=== PATIENT | female | born 1990 | race Caucasian/White ===

== ENCOUNTER 2016-11-01 11:34 | Emergency (ER) | payer OTHER ==
[~2016-11-01] VITALS: Ht 175.3 cm; Wt 59.1 kg
[~2016-11-01 11:34] MED LIST: ATIVAN 1MG T1 MG/TAB PO; ATIVAN2 MG PO; K-DUR20 MEQ PO; KLONOPIN2 MG PO; ZOFRAN 4MG T4 MG/TAB PO; ZOLOFT 100MG100 MG PO
[2016-11-01 11:37] VITALS: TEMP 98.6
[2016-11-01 11:50] VITALS: BP 108/67
[2016-11-01] MEDS ORDERED: FLEXERIL 1010 MG/TAB PO (13:26)
[2016-11-01] MEDS ORDERED: NORCO 325 MG-51 TAB PO (13:26)
[2016-11-01 13:42] VITALS: PULSE 63
== END 2016-11-01 13:43 | disposition home or self-care (01) ==
LOC: COL.ER 11:34
DX: R07.89 Other chest pain (principal); F41.0 Panic disorder [episodic paroxysmal anxiety]
CPT/HCPCS: J2270; J2550

== ENCOUNTER 2018-10-31 01:29 | Emergency (ER) | payer OTHER ==
[~2018-10-31] VITALS: Ht 175.3 cm; Wt 59.1 kg
[~2018-10-31 01:29] MED LIST changes: +FLEXERIL 1010 MG/TAB PO; +NORCO 325 MG-51 TAB PO
[2018-10-31 01:34] VITALS: TEMP 98.6
[2018-10-31 02:11] LABS: BASO # 0.1 (0.0-0.2); BASO % 0.5 % (0.0-2.0); EOS # 0.1 (0.0-0.7); EOS % 0.8 % (0-4.0); GRAN # 8.6 (1.4-6.5); GRAN % 70.8 % (42.2-75.2); HEMATOCRIT 40.7 % (37.0-47.0); LYMPH % 16.2 % (20.0-51.0); MEAN CELL VOLUME 94 fl (80.0-100.0); MEAN CORPUSCULAR HEMOGLOBIN 33 pg (27.0-31.0); MEAN CORPUSCULAR HGB CONC 34 g/dl (33.0-37.0); MEAN PLATELET VOLUME 9.7 fl (7.4-10.4); MONO # 1.4 (0.1-0.6); MONO % 11.3 % (1.7-9.3); PLATELET COUNT 288 K/mm3 (130-400); RED BLOOD COUNT 4.31 M/mm3 (4.10-5.30); REDCELL DISTRIBUTION WIDTH-CV 12.7 % (11.5-14.5)
[2018-10-31] MEDS ORDERED: ATIVAN 1MG T1 MG/TAB PO (02:19)
[2018-10-31] MEDS ORDERED: BENADRYL50 MG (02:21)
[2018-10-31] MEDS ORDERED: TYLENOL PM EXTR1 TA1 (02:22)
[2018-10-31 02:41] LABS: ALBUMIN 4.4 gm/dL (3.5-5.0); BILIRUBIN,TOTAL 0.1 mg/dL (0.0-1.0); CREATININE, serum 0.59 (0.52-1.25); POTASSIUM 3.9 mmol/L (3.4-5.0); TOTAL PROTEIN 7.8 gm/dL (6.4-8.2)
[2018-10-31 03:14] LABS: COLLECTION METHOD CLEAN CATCH
[2018-10-31 03:38] LABS: AMORPHOUS CRYSTAL Present /uL; PH 8 (5-8); SQUAMOUS EPITHELIAL 0-2 /hpf; URINE APPEARANCE Hazy; URINE BACTERIA Rare /hpf; URINE BILIRUBIN Negative (NEGATIVE); URINE BLOOD Negative (NEGATIVE); URINE COLOR Yellow; URINE GLUCOSE Negative (NEGATIVE); URINE KETONE Negative (NEGATIVE); URINE LEUKOCYTE ESTERASE Negative (NEGATIVE); URINE NITRATE Negative (NEGATIVE); URINE PROTEIN(semi-quant) Negative (NEGATIVE); URINE RBC 0-2 /hpf; URINE UROBILINOGEN Negative (NEGATIVE)
[2018-10-31 03:38] LABS: MAGNESIUM 1.9 mg/dL (1.6-2.3); PHOSPHOROUS 3.4 mg/dL (2.5-4.5)
[2018-10-31] MEDS ORDERED: MACROBID 1100 MG/CAP PO (04:09)
[2018-10-31 09:30] VITALS: BP 105/65; PULSE 70
== END 2018-10-31 09:35 | disposition home or self-care (01) ==
LOC: COL.ER 01:29
PROVIDERS: Emergency Medicine
DX: O99.341 Other mental disorders complicating pregnancy, first trimester (principal); O26.891 Other specified pregnancy related conditions, first trimester; F41.9 Anxiety disorder, unspecified; R45.851 Suicidal ideations; Z3A.01 Less than 8 weeks gestation of pregnancy
CPT/HCPCS: J1200; J7030

== ENCOUNTER 2019-05-31 23:03 | Inpatient (IN) | payer OTHER ==
[~2019-05-31] VITALS: Ht 177.8 cm; Wt 82.3 kg
[~2019-05-31 23:03] MED LIST changes: +BENADRYL50 MG; +MACROBID 1100 MG/CAP PO; +TYLENOL PM EXTR1 TA1
--- NOTE | 2019-05-31 23:15 | NUR ---
Ambulatory to unit for assessment of contractions. Oriented to room, monitor plan of care.
[2019-05-31 23:25] VITALS: BP 125/68; PULSE 82
--- NOTE | 2019-05-31 23:25 | NUR ---
BROCK as noted. As nurse starts to leave room, pt asks for door to be left open and states "I should probably tell you, I'm probably going to have a panic attack while I'm here" Pt reports the panic attacks are worse at night and "when I'm alone" When asked what we could do to help that from happening, she replied "just check on me alot and leave the door open" Pt reports "I take ATivan when they get get bad." Informed pt that we would flike to avoid ativan as much as possible at this point. Verbalizes understanding. Encouraged pt to call a friend to come and keep her company.
[2019-05-31 23:36] VITALS: BP 125/68; PULSE 82; TEMP 98.1
--- NOTE | 2019-05-31 23:45 | NUR ---
Pt reports "the contractions are terrible. I think I'm going to throw up." Offered SVE pt refuses, cold wash cloth provided, and basin for potential emesis.
[2019-06-01] VITALS (41 sets, daily range): BP systolic 98–146; BP diastolic 42–73; PULSE 66–93; TEMP 97.4–99.3
--- NOTE | 2019-06-01 00:30 | NUR ---
SVE as noted. Explained plan of care and admission to pt. Pt requests epidural.
--- NOTE | 2019-06-01 01:20 | NUR ---
0120 - IV started in left forearm. Lactated Ringers infusing to gravity. Consents reviewed with patient, verbalized understanding. US and toco applied. Pt requesting epidural, [facility] notified, will come to hospital. 0129 - Variable deceleration down to 90 bpm noted with contraction. Pt turned to left lateral. Fluid bolus started. 0131 - FHR remains in 90s, repositioned into hands and knees. Additional nursing to bedside. 0132 - FHR remains in 90s, O2 applied. Pt down to left lateral position. SVE 4/100/-2. 0135 - FHR remains in 90s, repositioned to right lateral. Dr. Gilman notified, will come to hospital. 0137 - FHR remains in 90s, repositioned to left lateral. 0139 - 0.2 mg terbutaline given subcutaneously in right arm, see MAR. 0140 - FHR improved to 115 bpm with moderate variability. Pt updated on plan of care.
[2019-06-01 01:45] LABS: BASO % 0.3 % (0.0-2.0); EOS # 0.1 (0.0-0.7); EOS % 0.5 % (0-4.0); GRAN # 11.3 (1.4-6.5); GRAN % 76.2 % (42.2-75.2); HEMATOCRIT 38.3 % (37.0-47.0); HEMOGLOBIN 12.7 g/dl (12.5-16.0); LYMPH # 1.9 (1.2-3.4); LYMPH % 12.9 % (20.0-51.0); MEAN CELL VOLUME 98 fl (80.0-100.0); MEAN CORPUSCULAR HEMOGLOBIN 32 pg (27.0-31.0); MEAN CORPUSCULAR HGB CONC 33 g/dl (33.0-37.0); MEAN PLATELET VOLUME 10.6 fl (7.4-10.4); MONO # 1.4 (0.1-0.6); MONO % 9.2 % (1.7-9.3); PLATELET COUNT 297 K/mm3 (130-400); RED BLOOD COUNT 3.93 M/mm3 (4.10-5.30); REDCELL DISTRIBUTION WIDTH-CV 13.2 % (11.5-14.5)
--- NOTE | 2019-06-01 02:16 | NUR ---
0200 - SWATI Welch at bedside for epidural placement. Pt repositioned to sitting on edge of bed. Epidural risks, benefits, and procedure reviewed with patient, pt verbalized understanding. 0206 - First dose of pen G given, see MAR. 0216 - Test dose by SWATI Welch. Pt denies any adverse reactions. 0220 - Pt positioned to wedge left. Educated patient on safety precautions, call light within reach, bed in low and locked position. See anesthesia record.
--- NOTE | 2019-06-01 03:15 | NUR ---
[place] placed to dependent drainage. Clear, yellow urine with [place] start. Secured to leg with stat lock. SVE 4/-2.
--- NOTE | 2019-06-01 06:30 | NUR ---
Assumed care of patient. Rests in bed, alert. Family at bedside. States feeling tired. Encouraged patient to sleep. 0640 Pen g 2.5 million units iv started as ordered and per protocol.
--- NOTE | 2019-06-01 08:00 | NUR ---
0805 Dr. Mason here, visits with patient. [address] Mason, moderate amount of clear fluid noted. Pad changed.
--- NOTE | 2019-06-01 08:30 | NUR ---
Rests in bed, alert. Pad changed, repositioned to right side. States left leg more numb.
--- NOTE | 2019-06-01 09:15 | NUR ---
Sits up in bed, alert. Denies any needs at this time.
--- NOTE | 2019-06-01 09:45 | NUR ---
Vag exam done, patient complete. Dr. Mason told that patient complete. 2639 Stevenson catheter out. Pushes with contractions.
--- NOTE | 2019-06-01 10:00 | NUR ---
Continues to push with contractions. Does well. 1003 Dr. Mason here, preps for delivery. Pushes with contractions with Dr. Mason. 1013 Spontaneous delivery of baby boy by Dr. Mason. 1021 Spontaneous delivery of placenta by Dr. Mason. Pitocin infusing at 333ccs an hour as ordered.
--- NOTE | 2019-06-01 10:30 | NUR ---
Rests in bed, alert. Repair work being done by Dr. Mason.
--- NOTE | 2019-06-01 11:00 | NUR ---
Rests in bed, alert. Holds baby lovingly. Family at bedside.
--- NOTE | 2019-06-01 13:30 | NUR ---
To bathroom via wheel chair. Patient states left leg still numb. Voids large amount of clear yellow urine. Maite-care explained and done. To room 215 via wheel chair. Assists to bed.
[2019-06-01 13:52] LABS: TRICYCLIC ANTIDEPRESS URINE NEGATIVE
[2019-06-02 04:00] VITALS: BP 95/46; PULSE 65; TEMP 98
[2019-06-02 07:29] LABS: HEMATOCRIT 32.8 % (37.0-47.0); HEMOGLOBIN 10.7 g/dl (12.5-16.0)
[2019-06-02 08:15] VITALS: BP 109/60; PULSE 74; TEMP 98
--- NOTE | 2019-06-02 13:00 | NUR ---
Encouraged to breastfeed. Baby latches on well.
[2019-06-02 16:15] VITALS: BP 115/61; PULSE 70; TEMP 98
[2019-06-02 20:00] VITALS: BP 108/55; PULSE 73; TEMP 98.3
[2019-06-03 07:15] VITALS: BP 112/64; PULSE 67; TEMP 99
[2019-06-03] MEDS ORDERED: IBU600 MG PO (09:29)
--- NOTE | 2019-06-03 09:34 | NUR ---
Strap Buckler met with patient to review supports and provide resource education. Patient's mother, Maggi (ph#[phone]) at bedside and reports that she will be staying with patient for a while after discharge to help with patient's new baby. Patient works for [employer] and reports she is planning on taking 6 weeks off but is having some difficulty getting paid time off. Patient states her place of employment has a shared leave program and some of her coworkers have donated PTO to her during this time. Patient does not have childcare established yet but has already been in contact with [facility] and will apply for childcare assistance before returning to work. Patient states she is going to interview potential child & adolescent psychiatrist providers soon. Patient reports she has a lot of support from her mom and from friends in the area. Patient states the baby's father is not involved and has not been up to see the baby. Patient reports she has everything she needs for the baby and has also applied for WIC. Patient has received mental health services in the past but reports she currently just sees her primary care physician, Dr. Smith although she reports Dr. Smith has known her for 10 years. provided [facility] Resource Guide to patient and discussed services that may benefit her and her new baby. Patient reports she has no concerns about returning home at this time.
--- NOTE | 2019-06-03 09:45 | NUR ---
Patient given discharge instructions and questions answered. Tags removed from baby. 1000: Patient ambulatory off unit with tech at this time.
--- NOTE | 2019-06-03 11:14 | NUR ---
Initial visit; Mom thanked [employer] for offering congratulations and God's blessings for the of her son. [employer] thanked family for choosing [facility].
== END 2019-06-03 10:00 | disposition home or self-care (01) | DRG 806 ==
LOC: LDRO 23:03 → LDR 06-01 00:50 → OB 06-01 13:30
PROVIDERS: Obstetrics & Gynecology; ADMIT Obstetrics & Gynecology
PROC: 10E0XZZ Delivery of Products of Conception, External Approach (ICD-10-PCS; principal; 2019-06-01)
PROC: 0KQM0ZZ Repair Perineum Muscle, Open Approach (ICD-10-PCS; 2019-06-01)
DX: O99.344 Other mental disorders complicating childbirth (principal); O99.354 Diseases of the nervous system complicating childbirth; Z37.0 Single live birth; F41.9 Anxiety disorder, unspecified; F32.9 Major depressive disorder, single episode, unspecified; F41.0 Panic disorder [episodic paroxysmal anxiety]; G43.909 Migraine, unspecified, not intractable, without status migrainosus; O70.1 Second degree perineal laceration during delivery; Z3A.37 37 weeks gestation of pregnancy
CPT/HCPCS: J2405; J2540; J2590; J3105; J7120

== ENCOUNTER → 2020-08-03 | Outpatient (CLI) | payer OTHER ==
[~2020-08-03] MED LIST changes: +IBU600 MG PO
== END ==
LOC: COL.LAB 10:50
DX: S32.9XXD Fracture of unspecified parts of lumbosacral spine and pelvis, subsequent encounter for fracture with routine healing (principal)